=== PATIENT | female | born 1980 | race Caucasian/White ===

== ENCOUNTER 2017-03-26 11:08 | Inpatient (IN) | payer MEDICAID, OTHER ==
[~2017-03-26] VITALS: Ht 157.5 cm; Wt 90.7 kg
[~2017-03-26 11:08] MED LIST: CYCL-181
[2017-03-26] MEDS ORDERED: SODIUM CHLORIDE 0.9% 1,000 ML IVB ONE (11:27)
[2017-03-26] MEDS ORDERED: HYDROmorphone HCL 2 MG/ML VL IV ONE (11:30)
[2017-03-26] MEDS ORDERED: ONDANSETRON HCL 4 MG/2 ML VIAL IV ONE (11:30)
[2017-03-26 11:39] LABS: Urine Bilirubin Negative (Negative); Urine Color Yellow (Yellow); Urine Glucose Normal (Normal); Urine Mucus FEW (None Seen); Urine Nitrite Negative (Negative); Urine RBC 59 /hpf (0 - 4); Urine Squamous Epithelial Cell FEW /hpf (<5); Urine Urobilinogen Normal (Negative); Urine pH 5.5 (5.0-8.0)
[2017-03-26 11:40] LABS: Urine Blood 2+ /uL (Negative); Urine Ketone 1+ (Negative)
[2017-03-26 11:43] LABS: Basophils # (auto) 0 uL; Basophils % (auto) 0.2 % (0.0-2.0); CONDITION Y; Eosinophils # (auto) 0.2 uL; Eosinophils % (auto) 1.4 % (0.0-7.0); Hematocrit 43.3 % (36.0-46.0); Hemoglobin 14.9 g/dL (12.2-16.2); Lymphocytes # (auto) 1.9 uL; Lymphocytes % (auto) 13.2 % (10.0-50.0); Mean Corpuscular Hemoglobin 31.3 pg (28.0-32.0); Mean Corpuscular Hgb Conc. 34.4 g/dL (32.0-36.0); Mean Corpuscular Volume 90.8 fL (80.0-100.0); Mean Platelet Volume 9.8 fL (7.4-10.4); Monocytes # (auto) 0.6 uL; Monocytes % (auto) 4.4 % (0.0-12.0); Neutrophils # (auto) 11.6 uL; Neutrophils % (auto) 80.8 % (37.0-80.0); Platelet Count (auto) 204 10^3/uL (140-450); Red Cell Distribution Width 13.6 % (11.6-16.0); White Blood Cell 14.4 10^3/uL (4.4-10.8)
[2017-03-26 12:03] LABS: Albumin 4.1 g/dL (3.4-5.0); BUN/Creatinine Ratio 18.4; Bilirubin, Total 0.8 mg/dL (0.2-1.0); Calcium 8.5 mg/dL (8.5-10.1); Potassium 3.7 mmol/L (3.5-5.1); Total Protein 7.5 g/dL (6.4-8.2)
[2017-03-26] MEDS ORDERED: KETOROLAC TROMETH 30 MG/ML 1ML VIAL IV ONE (13:15)
[2017-03-26] MEDS ORDERED: HYDROcodone-ACET 5/325MG TAB PO PRN (14:30)
[2017-03-26] MEDS ORDERED: cefTRIAXone 1GM/50ML D5W 50 ML IV ONE (14:30)
[2017-03-26] MEDS ORDERED: TEMAZEPAM 15 MG CAP PO PRN (14:30)
[2017-03-26] MEDS ORDERED: LORazepam 0.5 MG TAB PO PRN (14:30)
[2017-03-26] MEDS ORDERED: ACETAMINOPHEN 500 MG TAB PO PRN (14:30)
[2017-03-26 14:44] LABS: INR 1.02 (0.9-1.15); Prothrombin Time 11.1 sec (9.37-12.3)
[2017-03-26] MEDS: SODIUM CHLORIDE 0.9% 1,000 ML IV SCH (15:03)
[2017-03-26] MEDS: FAMOTIDINE (10MG/ML) 2ML VL IV SCH (15:03)
[2017-03-26] MEDS: PROMETHAZINE HCL 25 MG/ML 1ML IV PRN ×2 (15:04→20:16)
[2017-03-26] MEDS: MORPHINE SULFATE 4 MG/ML SYRG IV PRN ×2 (15:04→20:16)
[2017-03-26 20:00] VITALS: BP 146/74
[2017-03-27] MEDS: FAMOTIDINE (10MG/ML) 2ML VL IV SCH ×2 (00:57→14:14)
[2017-03-27] MEDS: SODIUM CHLORIDE 0.9% 1,000 ML IV SCH ×2 (00:57→09:56)
[2017-03-27] MEDS: MORPHINE SULFATE 4 MG/ML SYRG IV PRN ×4 (00:57→14:15)
[2017-03-27] MEDS: PROMETHAZINE HCL 25 MG/ML 1ML IV PRN ×6 (00:58→23:21)
[2017-03-27 04:49] VITALS: BP 110/56
[2017-03-27 04:51] VITALS: BP 109/63
[2017-03-27 05:54] LABS: Basophils # (auto) 0 uL; Basophils % (auto) 0.5 % (0.0-2.0); CONDITION Y; Eosinophils # (auto) 0.3 uL; Eosinophils % (auto) 4.2 % (0.0-7.0); Hematocrit 38.6 % (36.0-46.0); Hemoglobin 12.9 g/dL (12.2-16.2); Lymphocytes # (auto) 3.6 uL; Lymphocytes % (auto) 48.3 % (10.0-50.0); Mean Corpuscular Hemoglobin 30.7 pg (28.0-32.0); Mean Corpuscular Hgb Conc. 33.3 g/dL (32.0-36.0); Mean Corpuscular Volume 92.2 fL (80.0-100.0); Mean Platelet Volume 10.5 fL (7.4-10.4); Monocytes # (auto) 0.6 uL; Monocytes % (auto) 8.6 % (0.0-12.0); Neutrophils # (auto) 2.9 uL; Neutrophils % (auto) 38.4 % (37.0-80.0); Platelet Count (auto) 201 10^3/uL (140-450); Red Cell Distribution Width 14.3 % (11.6-16.0); White Blood Cell 7.5 10^3/uL (4.4-10.8)
[2017-03-27 08:00] VITALS: BP 115/62
[2017-03-27] MEDS ORDERED: cefTRIAXone 1GM/50ML D5W 50 ML IV SCH (09:00)
[2017-03-27 12:30] VITALS: BP 133/82
[2017-03-27] MEDS: MORPHINE SULF INJ 2 MG/ML SYRINGE 1ML IV PRN ×2 (19:04→23:21)
[2017-03-27 22:00] VITALS: BP 147/90
[2017-03-28] MEDS: FAMOTIDINE (10MG/ML) 2ML VL IV SCH (01:38)
[2017-03-28] MEDS: PROMETHAZINE HCL 25 MG/ML 1ML IV PRN ×2 (02:30→07:06)
[2017-03-28] MEDS: MORPHINE SULF INJ 2 MG/ML SYRINGE 1ML IV PRN ×2 (02:30→07:06)
[2017-03-28 05:10] VITALS: BP 104/52
[2017-03-28 05:29] VITALS: BP 140/82
[2017-03-28 08:00] VITALS: BP 145/94
[2017-03-28 08:50] VITALS: BP 145/94
[2017-03-28 10:50] VITALS: BP 145/94
[2017-03-28 11:45] VITALS: BP 145/94
== END 2017-03-28 11:45 | disposition home or self-care (01) | DRG 251 ==
LOC: ER 11:08 → TELE 11:09 → CENTRAL 20:00
PROVIDERS: ADMIT Internal Medicine; ATTEND Internal Medicine
DX: R10.30 Lower abdominal pain, unspecified (principal); F11.20 Opioid dependence, uncomplicated; N20.0 Calculus of kidney; N28.1 Cyst of kidney, acquired; E66.9 Obesity, unspecified; K57.30 Diverticulosis of large intestine without perforation or abscess without bleeding; F17.210 Nicotine dependence, cigarettes, uncomplicated; Z80.3 Family history of malignant neoplasm of breast; Z82.0 Family history of epilepsy and other diseases of the nervous system; Z83.3 Family history of diabetes mellitus; Z98.51 Tubal ligation status; Z71.89 Other specified counseling; J98.11 Atelectasis; Z53.29 Procedure and treatment not carried out because of patient's decision for other reasons; R10.2 Pelvic and perineal pain
CPT/HCPCS: 36415; 71010; 74176; 76775; 76856; 80053; 81001; 82150; 83690; 84702; 85025; 85610; 85730; 87086; 94761; 96361; 96365; 96375; J0696; J1885; J2405; J3490